=== PATIENT | male | born 1995 | race Caucasian/White ===

== ENCOUNTER 2019-03-20 11:28 | Outpatient (CLI) | payer OTHER | END 2019-03-20 11:29 | disposition home or self-care (01) | LOC: SC 11:28 | PROVIDERS: ATTEND Internal Medicine Pulmonary Disease | DX: R06.83 Snoring (principal); G47.8 Other sleep disorders; R51 Headache; R06.81 Apnea, not elsewhere classified; R41.89 Other symptoms and signs involving cognitive functions and awareness; G47.10 Hypersomnia, unspecified | CPT/HCPCS: 99203; 99212 ==

== ENCOUNTER 2019-04-01 19:31 | Outpatient (CLI) | payer OTHER | END 2019-04-01 19:32 | disposition home or self-care (01) | LOC: SC 19:31 | PROVIDERS: ATTEND Internal Medicine Pulmonary Disease | DX: R06.83 Snoring (principal); R53.83 Other fatigue | CPT/HCPCS: 95810 ==

== ENCOUNTER 2019-04-05 13:22 | Outpatient (CLI) | payer OTHER | END 2019-04-05 13:23 | disposition home or self-care (01) | LOC: SC 13:22 | PROVIDERS: ATTEND Nurse Practitioner Family | DX: R06.83 Snoring (principal) | CPT/HCPCS: 99212; 99214 ==

== ENCOUNTER 2019-04-19 17:55 | Outpatient (CLI) | payer OTHER ==
--- NOTE | 2019-04-20 16:54 | MRI Report ---
Reason: PAIN IN UNSPECIFIED KNEE Procedure Date: 04/19/2019 Accession Number: [id number] / [id number] Procedure: MRI - Knee RT W/O CPT Code: FULL RESULT: EXAM: RIGHT KNEE MRI WITHOUT CONTRAST EXAM DATE: 04/19/2019 06:58 PM. CLINICAL HISTORY: Right knee pain. Previous knee surgery 7-8 years ago. Recent injury. COMPARISON: None. TECHNIQUE: Multiplanar, multisequence T1-weighted and fluid-sensitive sequences of the knee without contrast. Other: None. FINDINGS: Some images are degraded due to patient-related motion artifact. Bones: Postoperative changes at the patella. No acute fracture or bone lesions. Lateral subluxation of the patella by approximately 8 mm. The lateral trochlear inclination angle is approximately 10 degrees which is below normal limits. The trochlear groove-tibial tubercle distance is approximately 2.2 cm. Articular Cartilage: Unremarkable. Medial Meniscus: The medial meniscus is intact. Lateral Meniscus: The lateral meniscus is intact. Cruciate Ligaments: The anterior and posterior cruciate ligaments are intact. Collateral Ligaments: The medial collateral and lateral collateral ligamentous structures are intact. Tendons: The quadriceps, patellar, semimembranosus, and popliteus tendons are unremarkable. Musculature: No edema or fatty atrophy. Other: No effusion. Small popliteal cyst which is ruptured. No loose bodies. The medial and lateral retinacula are intact. Edema within the deep subcutaneous fat at the medial and posterior medial aspects of the knee. IMPRESSION: 1. Small, ruptured popliteal cyst. 2. Lateral subluxation of the patella by approximately 8 mm. Trochlear dysplasia. Lateralization of the tibial tubercle. 3. No ligament or meniscal tear. RADIA
== END 2019-04-19 17:56 | disposition home or self-care (01) ==
LOC: DI 17:55
PROVIDERS: ATTEND Nurse Practitioner Family
DX: S86.811A Strain of other muscle(s) and tendon(s) at lower leg level, right leg, initial encounter (principal); S83.011A Lateral subluxation of right patella, initial encounter

== ENCOUNTER 2019-04-22 20:15 | Outpatient (CLI) | payer OTHER | END 2019-04-22 20:16 | disposition home or self-care (01) | LOC: SC 20:15 | PROVIDERS: ATTEND Internal Medicine Pulmonary Disease | DX: G47.61 Periodic limb movement disorder (principal); R06.83 Snoring | CPT/HCPCS: 95810 ==

== ENCOUNTER 2019-05-04 08:17 | Outpatient (CLI) | payer OTHER ==
--- NOTE | 2019-05-04 09:12 | SLEEP CARE CONSULTATION ---
Information from patient questionnaire entered by Tiffany Silva. I have reviewed and concur with the information entered by Tiffany Silva. This document represents the service I personally performed and the decisions made by , Janelle Youngblood RN, MSN, CHIEF SERVICE DISPATCHER. History of Present Illness Initial [place] Sleepiness Scale score: 17 Current [place] Sleepiness Scale score: 17 Additional HPI information: STEVEN AVINA returns follow up of the recently performed polysomnography and informed of the polysomnography findings. I explained the pathophysiology behind obstructive sleep apnea. Patient does not have significant sleep disordered breathing. What apneas events noted were in REM sleep. Patient also has loud snoring. He was advised how weight gain could increase the risk of developing sleep apnea in the future. I strongly encouraged the patient to lose weight. Patient counseled not drink alcohol less than 4 hours before bedtime as it can increase snoring and apnea. Patient was cautioned about risks of drowsy driving until sleepiness symptoms resolve. Patient denies drowsy driving. Sleep Study - Polysomnography Polysomnography findings: The quality of the study is good. The patient had normal sleep efficiency. The sleep architecture was normal as well. Respiratory monitoring showed no significant sleep disordered breathing (AHI = 3.4) or hypoxia (alissa oxygen saturation of 90%). The patient only slept supine during this study (supine AHI = 3.4; nonsupine = 0.00). Snore was loud in intensity. There was mild periodic leg movement of sleep not associated with sleep fragmentation. Cardiac rhythm was normal sinus rhythm without significant arrhythmia. No abnormal behavior (parasomnia) observed during the night. Allergies and Home Medications Known drug allergies: Yes (sulfa, morphine) Home medication list reviewed: Yes Allergy and home medication list: Zyrtec 10mg daily Review of Systems Review of systems same as previous: Yes Physical Exam Heart Rate: 89 O2 Saturation: 99 Height: 6 ft 2.5 in Weight (kg): 105.868 kg Body Mass Index: 29.5 BMI Classification: Overweight Impression and Plan 1. Snoring but no significant sleep disordered breathing except in REM sleep. His first sleep study showed similar findings but increased apnea in supine sleep. He had one REM period on his right side with no apnea noted. Thus patient advised to consider positional therapy again until he loses more weight to see if he feels any more rested. Patient advised that often weight loss will reduce snoring as well as apnea risk. An oral appliance can also be used for snoring. This would require a dental consultation. Patient cautioned not to use other online appliances as can cause bite issues. A list of accredited dentists in area and one local dentist who makes oral appliances given. Patient is advised to check if insurance will cover. Since he has seasonal allergies with difficultly breathing through his nose, further treatment is indicated as can contribute to snoring. An ENT consult can also be helpful to determine if any other treatment is an option as snoring can disrupt sleep. 2. Periodic limb movement, mild, that did not fragment patients sleep. Periodic limb movement of sleep (PLMS) is characterized by episodes of repetitive limb movements that occur during sleep and usually involve the lower limbs. The etiology is unknown but can be associated with restless leg syndrome (RLS), neuropathy, spinal cord diseases, kidney disease, rheumatological disorders, narcolepsy, obstructive sleep apnea, and REM sleep behavior disorder. Other factors that can increase PLMS and/or RLS are heredity and iron deficiency as reflected by a low serum ferritin level below 50 to 75mcg / L. Several medications can precipitate or aggravate PLMS such as selective serotonin re- uptake inhibitor antidepressants, tricyclic antidepressants, lithium, and dopamine receptor antagonists with the exception of bupropion. Caffeine can also aggravate PLMS and should be avoided. Sleep hygiene methods can also improve sleep as well as lifestyle changes such as regular exercise. Patient was advised that no treatment is needed at this time. If symptoms increase, then further evaluation is indicated. * Attempt to lose weight * Consider positional therapy to reduce apnea events * Follow up with PCP for further evaluation of sleepiness symptoms and nasal congestion. * Consider ENT evaluation for further evaluation of snoring. * Avoid alcohol consumption near bedtime * The patient is cautioned about driving until sleepiness is completely resolved. * Return in as needed. I spent 100% of this 35 minute visit face to face with the patient with greater than 50% of this was spent time counseling the patient and coordination of care.
== END 2019-05-04 08:18 | disposition home or self-care (01) ==
LOC: SC 08:17
PROVIDERS: ATTEND Nurse Practitioner Family
DX: R06.83 Snoring (principal); G47.61 Periodic limb movement disorder
CPT/HCPCS: 99212; 99214